=== PATIENT | female | born 1990 ===

== ENCOUNTER 2017-04-30 16:06 | Emergency (ER) | payer OTHER ==
[2017-04-30 16:31] VITALS: PULSE 84; RESP 20; TEMP 98.9; O2SAT 98
[2017-04-30] MEDS ORDERED: Sodium Chloride 0.9% 1,000 ML IV STA (16:50)
--- NOTE | 2017-04-30 17:21 | ED PDOC ---
HPI: Female Pain Time Seen by Provider: 04/30/17 16:09 Chief Complaint (Nursing): Abdominal Pain Chief Complaint (Provider): Pelvic Cramps History Per: Patient History/Exam Limitations: no limitations Onset/Duration Of Symptoms: Other (x3 weeks) Current Symptoms Are (Timing): Still Present Quality Of Discomfort: Cramping ("feels like period cramps"), Other (bloating) Associated Symptoms: denies: Nausea, Vomiting, Chest Pain, Urinary Symptoms Additional Complaint(s): 26 year old female presents to ED with complaints of intermittent pelvic pain x3 weeks and has a past medical history of PCOS and irregular periods. Describes the pain as cramping/bloating and notes that they are very similar to period cramps. States that she has not had a period x3-4 months. (-) vaginal bleeding, nausea, vomiting, chest pain, SOB, numbness/tingling, or dysuria. No back pain. PCP: None Abnormal Vaginal Bleeding: No Past Medical History Reviewed: Historical Data, Nursing Documentation, Vital Signs Vital Signs: Last Vital Signs Temp 98.9 F 04/30/17 16:29 Pulse 84 04/30/17 16:29 Resp 20 04/30/17 16:29 BP Pulse Ox 98 04/30/17 16:29 - Medical History Other PMH: PCOS and irregular periods - Surgical History Surgical History: No Surg Hx - Family History Family History: States: Unknown Family Hx - Social History Alcohol: None Drugs: Denies - Home Medications Home Medications: Ambulatory Orders Medication Instructions Recorded Ibuprofen [Motrin] 600 mg PO TID 7 Days 04/30/17 - Allergies Allergies/Adverse Reactions: Allergies Allergy/AdvReac Type Severity Reaction Status Date / Time No Known Allergies Allergy Verified 04/30/17 16:29 Review of Systems ROS Statement: Except As Marked, All Systems Reviewed And Found Negative Cardiovascular: Negative for: Chest Pain Respiratory: Negative for: Shortness of Breath Gastrointestinal: Negative for: Nausea, Vomiting Genitourinary Female: Positive for: Pelvic Pain (cramping). Negative for: Dysuria, Vaginal Bleeding Neurological: Negative for: Numbness Physical Exam - Reviewed Nursing Documentation Reviewed: Yes Vital Signs Reviewed: Yes - Physical Exam Appears: Positive for: Non-toxic, No Acute Distress Skin: Positive for: Normal Color, Warm, Dry Eye Exam: Positive for: Normal appearance, EOMI, PERRL Neck: Positive for: Normal Cardiovascular/Chest: Positive for: Regular Rate, Rhythm. Negative for: Murmur Respiratory: Positive for: Normal Breath Sounds. Negative for: Respiratory Distress Gastrointestinal/Abdominal: Positive for: Normal Exam, Tenderness (mild left lower pelvic tenderness; no RLQ tenderness). Negative for: Distended, Guarding Back: Positive for: Normal Inspection. Negative for: L CVA Tenderness, R CVA Tenderness Extremity: Positive for: Normal ROM. Negative for: Tenderness, Pedal Edema, Deformity Neurologic/Psych: Positive for: Alert, Oriented. Negative for: Motor/Sensory Deficits - Laboratory Results Result Diagrams: 04/30/17 16:40 04/30/17 16:40 Interpretation Of Abn Labs: no acute - ECG O2 Sat by Pulse Oximetry: 98 (RA) Pulse Ox Interpretation: Normal - Progress ED Course And Treament: 191: Stable. AAOx3. Pain free. Fu with obgyn. Tolerated PO. Medical Decision Making Medical Decision Makin Initial impression: evaluation of pelvic pain Initial plan: * Labs * UPreg * UDip * Labs * NS IV * Toradol 30mg IV * US PELVIS/TRANSVAG Scribe Attestation: Documented by Shakila Gibbs acting as a scribe for Alonzo Posadas MD. Scribe Attestation: All medical record entries made by the Scribe were at my direction and personally dictated by me. I have reviewed the chart and agree that the record accurately reflects my personal performance of the history, physical exam, medical decision making, and the department course for this patient. I have also personally directed, reviewed, and agree with the discharge instructions and disposition. Disposition - Clinical Impression Clinical Impression: Nabothian (gland) cyst or follicle, Pelvic pain - Patient ED Disposition Is Patient to be Admitted: No Counseled Patient/Family Regarding: Studies Performed, Diagnosis, Need For Followup - Disposition [facility] Disposition: Routine/Home Disposition Time: 19:14 Condition: STABLE Additional Instructions: Return if not better in 3 days. Prescriptions: Ibuprofen [Motrin] 600 mg PO TID 7 Days Instructions: Pelvic Pain in Women (ED) Forms: [employer] ([place])
[2017-04-30 17:25] LABS: BASO % 0.7 % (0.0-2.0); EOS # 0.3 K/uL (0.0-0.7); EOS % 4.7 % (0.0-4.0); HEMATOCRIT 41.2 % (34.0-47.0); LYMPH # 1.4 K/uL (1.0-4.3); LYMPH % 23.9 % (20.0-40.0); MEAN CELL VOLUME 92.5 fl (81.0-99.0); MEAN CORPUSCULAR HEMOGLOBIN 30.1 pg (27.0-31.0); MEAN CORPUSCULAR HGB CONC 32.6 g/dL (33.0-37.0); MEAN PLATELET VOLUME 8.4 fl (7.2-11.7); MONO # 0.6 K/uL (0.0-0.8); MONO % 9.1 % (0.0-10.0); NEUT # 3.7 K/uL (1.8-7.0); NEUT % 61.6 % (50.0-75.0); NRBC % 0.1 % (0.0-0.0); RED CELL DISTRIBUTION WIDTH 11.9 % (11.5-14.5)
[2017-04-30 17:29] LABS: ALB/GLOB RATIO 1.3 (1.0-2.1); ALKALINE PHOSPHATASE 61 U/L (38-126); ALT/SGPT 32 U/L (9-52); AST/SGOT 24 U/L (14-36); BILIRUBIN,TOTAL 0.4 mg/dl (0.2-1.3); BLOOD UREA NITROGEN 11 mg/dl (7-17); CALCIUM 8.8 mg/dL (8.4-10.2); CARBON DIOXIDE 26 mmol/L (22-30); CHLORIDE 105 mmol/L (98-107); GFR AFRICAN-AMERICAN > 60; GLUCOSE,RANDOM 97 mg/dL (65-105); POTASSIUM 4.3 MMOL/L (3.6-5.0); SODIUM 143 mmol/l (132-148)
--- NOTE | 2017-05-01 10:14 | US ---
HISTORY: pelvic pain hx of PCOS COMPARISON: None available. TECHNIQUE: Pelvis/transvaginal ultrasound FINDINGS: UTERUS: Measures 8.5 x 3.6 x 2.4 cm. ENDOMETRIUM: Measures 5 mm in diameter. CERVIX: Nabothian cysts. RIGHT OVARY: Measures 3.3 x 3.2 x 1.6 cm. Blood flow is demonstrated. LEFT OVARY: Measures 3.8 x 3.5 x 1.7 cm. Blood flow is demonstrated. FREE FLUID: Small pelvic free fluid. OTHER FINDINGS: None. IMPRESSION: Small pelvic free fluid. Additional findings as above. Preliminary impression was provided by [facility].
== END 2017-04-30 19:34 | disposition home or self-care (01) ==
LOC: H.ER 16:06
DX: R10.2 Pelvic and perineal pain (principal)

== ENCOUNTER 2017-10-06 11:51 | Emergency (ER) | payer OTHER ==
[2017-10-06 12:29] VITALS: BP 94/60; PULSE 67; RESP 18; TEMP 98.4; O2SAT 100
--- NOTE | 2017-10-06 12:39 | ED PDOC ---
HPI: CCC, URI, Sore Throat Time Seen by Provider: 10/06/17 11:55 Chief Complaint (Nursing): Cough, Cold, Congestion Chief Complaint (Provider): Cough, cold, congestion History Per: Patient History/Exam Limitations: no limitations Onset/Duration Of Symptoms: Days (x2 weeks) Current Symptoms Are (Timing): Still Present Associated Symptoms: Cough, Sputum. denies: Fever, Chills, Nausea, Other ( chest pain) Ear Symptoms: Bilateral: None Severity: None Pain Scale Rating Of: 0 Additional Complaint(s): Candida Khan is a 26 year old female, with no past medical history, who presents to the emergency department complaining of a productive cough and congestion associated with shortness of breath at night onset for 2 weeks. Patient states the cough is worst at night. She saw urgent care who diagnosed her with post-nasal drip and prescribed her antihistamine. She finished medications with no improvement of symptoms. Patient bought [id number] antihistamine after she ran out of medications. She denies any fever, chills, nausea or chest pain. No further medical complaints. PMD: None provided. Past Medical History Reviewed: Historical Data, Nursing Documentation, Vital Signs Vital Signs: Last Vital Signs Temp 98.4 F 10/06/17 12:21 Pulse 67 10/06/17 12:21 Resp 18 10/06/17 12:21 BP 94/60 L 10/06/17 12:21 Pulse Ox 100 10/06/17 13:11 - Family History Family History: States: Unknown Family Hx - Social History Current smoker - smoking cessation education provided: No Alcohol: Social Drugs: Denies - Home Medications Home Medications: Ambulatory Orders Medication Instructions Recorded Ibuprofen [Motrin] 600 mg PO TID 7 Days tab 04/30/17 Methylprednisolone [Medrol Dose 4 mg PO DAILY #21 mg 10/06/17 Pack (21 tabs)] Promethazine HCl/Codeine 5 ml PO HS #80 ml 10/06/17 [Prometh-Codein 6.25-10 mg/5 ml] - Allergies Allergies/Adverse Reactions: Allergies Allergy/AdvReac Type Severity Reaction Status Date / Time No Known Allergies Allergy Verified 04/30/17 16:29 Review of Systems ROS Statement: Except As Marked, All Systems Reviewed And Found Negative Constitutional: Negative for: Fever, Chills Cardiovascular: Negative for: Chest Pain Respiratory: Positive for: Cough (productive), Shortness of Breath (at night), Sputum Gastrointestinal: Negative for: Nausea Physical Exam - Reviewed Nursing Documentation Reviewed: Yes Vital Signs Reviewed: Yes - Physical Exam Appears: Positive for: Well, Non-toxic, No Acute Distress Head Exam: Positive for: ATRAUMATIC, NORMAL INSPECTION, NORMOCEPHALIC Skin: Positive for: Normal Color, Warm, Dry Eye Exam: Positive for: EOMI, Normal appearance, PERRL ENT: Positive for: Normal ENT Inspection Neck: Positive for: Normal, Painless ROM, Supple Cardiovascular/Chest: Positive for: Regular Rate, Rhythm. Negative for: Murmur Respiratory: Positive for: Normal Breath Sounds. Negative for: Respiratory Distress Gastrointestinal/Abdominal: Positive for: Normal Exam, Bowel Sounds, Soft. Negative for: Tenderness, Guarding, Rebound Back: Positive for: Normal Inspection. Negative for: L CVA Tenderness, R CVA Tenderness Extremity: Positive for: Normal ROM. Negative for: Deformity, Swelling Neurologic/Psych: Positive for: Alert, Oriented - ECG O2 Sat by Pulse Oximetry: 100 (RA) Pulse Ox Interpretation: Normal Medical Decision Making Medical Decision Making: Initial Impression: URI Initial Plan: --Chest two views (PA/LAT) [RAD] --reevaluation 1301 Chest X-Ray FINDINGS: LUNGS: No active pulmonary disease. PLEURA: No significant pleural effusion identified. No pneumothorax apparent. CARDIOVASCULAR: Normal. OSSEOUS STRUCTURES: No significant abnormalities. VISUALIZED UPPER ABDOMEN: Normal. OTHER FINDINGS: None. IMPRESSION: No active disease. ~ Scribe Attestation: Documented by Robbie Okeefe, acting as a scribe for Arlene Mayes PA-C. Provider Scribe Attestation: All medical record entries made by the Scribe were at my direction and personally dictated by me. I have reviewed the chart and agree that the record accurately reflects my personal performance of the history, physical exam, medical decision making, and the department course for this patient. I have also personally directed, reviewed, and agree with the discharge instructions and disposition. Disposition - Clinical Impression Clinical Impression: Upper respiratory infection - Patient ED Disposition Is Patient to be Admitted: No - Disposition Disposition: Routine/Home Disposition Time: 13:10 Condition: STABLE Prescriptions: Methylprednisolone [Medrol Dose Pack (21 tabs)] 4 mg PO DAILY #21 mg Promethazine HCl/Codeine [Prometh-Codein 6.25-10 mg/5 ml] 5 ml PO HS #80 ml Instructions: Upper Respiratory Infection (ED) Forms: [facility] (Welsh) - POA Present On Arrival: None
--- NOTE | 2017-10-06 13:07 | RAD ---
HISTORY: Cough x 2 weeks COMPARISON: No prior. TECHNIQUE: Chest PA and lateral FINDINGS: LUNGS: No active pulmonary disease. PLEURA: No significant pleural effusion identified. No pneumothorax apparent. CARDIOVASCULAR: Normal. OSSEOUS STRUCTURES: No significant abnormalities. VISUALIZED UPPER ABDOMEN: Normal. OTHER FINDINGS: None. IMPRESSION: No active disease.
== END 2017-10-06 13:11 | disposition home or self-care (01) ==
LOC: H.ER 11:51
DX: J06.9 Acute upper respiratory infection, unspecified (principal)